=== PATIENT | male | born 1995 | race Caucasian/White ===

== ENCOUNTER 2018-03-03 23:50 | Emergency (ER) | payer MEDICAID ==
--- NOTE | 2018-03-03 23:59 | EDM.PDOC ---
ED HPI GENERAL MEDICAL PROBLEM - General Chief Complaint: General Stated Complaint: PT FEEDING TUBE CAME OUT Time Seen by Provider: 03/03/18 23:54 - History of Present Illness INITIAL COMMENTS - FREE TEXT/NARRATIVE: HISTORY AND PHYSICAL: History of present illness: Patient is a 22-year-old white male severely disabled who presents with G-tube dislodgment. Review of systems: As per history of present illness and below otherwise all systems reviewed and negative. Past medical history: As per history of present illness and as reviewed below otherwise noncontributory. Surgical history: As per history of present illness and as reviewed below otherwise noncontributory. Social history: No reported history of drug or alcohol abuse. Family history: As per history of present illness and as reviewed below otherwise noncontributory. Physical exam: Awake neuro baseline per dad lungs clear to auscultation heart S1-S2 abdomen soft nondistended nontender pelvis is stable Diagnostics: None Therapeutics: G-tube was replaced by myself balloon was inflated flushes with ease Impression: #1 G-tube dislodgment status post reinsertion Definitive disposition and diagnosis as appropriate pending reevaluation and review of above. ED ROS GENERAL - Review of Systems Review Of Systems: ROS reveals no pertinent complaints other than HPI. ED EXAM, GENERAL - Physical Exam Exam: See Below (See dictation) Departure - Departure Time of Disposition: 23:57 Disposition: Home, Self-Care 01 Condition: Good Clinical Impression: Gastrostomy tube dysfunction - Discharge Information Additional Instructions: The following information is given to patients seen in the emergency department who are being discharged to home. This information is to outline your options for follow-up care. We provide all patients seen in our emergency department with a follow-up referral. The need for follow-up, as well as the timing and circumstances, are variable depending upon the specifics of your emergency department visit. If you don't have a primary care physician on staff, we will provide you with a referral. We always advise you to contact your personal physician following an emergency department visit to inform them of the circumstance of the visit and for follow-up with them and/or the need for any referrals to a consulting specialist. The emergency department will also refer you to a specialist when appropriate. This referral assures that you have the opportunity for followup care with a specialist. All of these measure are taken in an effort to provide you with optimal care, which includes your followup. Under all circumstances we always encourage you to contact your private physician who remains a resource for coordinating your care. When calling for followup care, please make the office aware that this follow-up is from your recent emergency room visit. If for any reason you are refused follow-up, please contact the [facility] emergency department at and asked to speak to the emergency department charge nurse. Continue routine care follow-up private medical doctor as needed as discussed and return as needed as discussed
== END 2018-03-04 00:35 | disposition home or self-care (01) ==
LOC: MW.ED 23:50
DX: K94.23 Gastrostomy malfunction (principal)
CPT/HCPCS: 99282

== ENCOUNTER 2018-03-06 12:57 | Emergency (ER) | payer MEDICAID ==
--- NOTE | 2018-03-06 13:18 | EDM.PDOC ---
ED HPI GENERAL MEDICAL PROBLEM - General Chief Complaint: Gastrointestinal Problem Stated Complaint: FEEDING TUBE CAME OUT Time Seen by Provider: 03/06/18 13:05 - History of Present Illness INITIAL COMMENTS - FREE TEXT/NARRATIVE: HISTORY AND PHYSICAL: History of present illness: Patient 22-year-old white male with significant developmental and physical disabilities who presents status post gastrostomy tube dislodgment his similar episode several days prior was seen by myself and had this reinserted without complication. Review of systems: As per history of present illness and below otherwise all systems reviewed and negative. Past medical history: As per history of present illness and as reviewed below otherwise noncontributory. Surgical history: As per history of present illness and as reviewed below otherwise noncontributory. Social history: No reported history of drug or alcohol abuse. Family history: As per history of present illness and as reviewed below otherwise noncontributory. Physical exam: HEENT: Atraumatic, normocephalic, pupils reactive, negative for conjunctival pallor or scleral icterus, mucous membranes moist, throat clear, neck supple, nontender, trachea midline. Lungs: Clear to auscultation, breath sounds equal bilaterally, chest nontender. Heart: S1S2, regular, negative for clicks, rubs, or JVD. Abdomen: Soft, nondistended, nontender. Gastrostomy hole noted left subcostal area no erythema no discharge no fluctuance Negative for masses or hepatosplenomegaly. Negative for costovertebral tenderness. Pelvis: Stable nontender. Genitourinary: Deferred. Rectal: Deferred. Extremities: Atraumatic, contractures noted negative for cords or calf pain. Neurovascular unremarkable. Neuro: Awake, alert, moves all extremities baseline per father Diagnostics: None Therapeutics: Gastrostomy tube reinserted without difficulty balloon inflated 15 mL normal saline adjusted and dressed accordingly Impression: #1 gastrostomy tube dislodgment status post reinsertion Definitive disposition and diagnosis as appropriate pending reevaluation and review of above. - Related Data Allergies Allergy/AdvReac Type Severity Reaction Status Date / Time No Known Allergies Allergy Verified 03/06/18 13:09 Home Meds: Home Meds . [No Known Home Meds] 03/04/18 [History] Past Medical History Neurological History: Reports: Cerebral Palsy - Past Surgical History GI Surgical History: Reports: Other (See Below) Other GI Surgeries/Procedures: feeding tube Musculoskeletal Surgical History: Reports: Other (See Below) Other Musculoskeletal Surgeries/Procedures:: hip surgery ED ROS GENERAL - Review of Systems Review Of Systems: ROS reveals no pertinent complaints other than HPI. ED EXAM, GENERAL - Physical Exam Exam: See Below (See dictation) Course - Vital Signs Last Recorded V/S: Last Vital Signs Temp 35.7 C 03/06/18 13:07 Pulse 77 03/06/18 13:07 Resp 18 03/06/18 13:07 BP 135/69 03/06/18 13:07 Pulse Ox 99 03/06/18 13:07 Departure - Departure Time of Disposition: 13:12 Disposition: Home, Self-Care 01 Condition: Good Clinical Impression: Gastrostomy tube dysfunction - Discharge Information Referrals: PCP,None [Primary Care Provider] - Additional Instructions: The following information is given to patients seen in the emergency department who are being discharged to home. This information is to outline your options for follow-up care. We provide all patients seen in our emergency department with a follow-up referral. The need for follow-up, as well as the timing and circumstances, are variable depending upon the specifics of your emergency department visit. If you don't have a primary care physician on staff, we will provide you with a referral. We always advise you to contact your personal physician following an emergency department visit to inform them of the circumstance of the visit and for follow-up with them and/or the need for any referrals to a consulting specialist. The emergency department will also refer you to a specialist when appropriate. This referral assures that you have the opportunity for followup care with a specialist. All of these measure are taken in an effort to provide you with optimal care, which includes your followup. Under all circumstances we always encourage you to contact your private physician who remains a resource for coordinating your care. When calling for followup care, please make the office aware that this follow-up is from your recent emergency room visit. If for any reason you are refused follow-up, please contact the [facility] emergency department at and asked to speak to the emergency department charge nurse. Continue routine care follow-up private medical doctor as needed as discussed and return as needed as discussed
== END 2018-03-06 13:30 | disposition home or self-care (01) ==
LOC: MW.ED 12:57
DX: K94.23 Gastrostomy malfunction (principal)
CPT/HCPCS: 99282